=== PATIENT | female | born 1980 | race Caucasian/White ===

== ENCOUNTER → 2018-06-30 09:06 | Outpatient (CLI) | payer OTHER, SELFPAY ==
[2018-06-30 09:25] LABS: Basophils % 0.7 % (0.1-2.0); Eosinophils # 0.1 K/mm3 (0.0-0.4); Eosinophils % 1.2 % (0.1-12.0); Hematocrit 44.3 % (37.0-47.0); Hemoglobin 14.8 g/dL (12.2-16.2); Lymphocytes # 1.9 K/mm3 (0.7-4.5); Lymphocytes % 29.7 % (10-50); Mean Corpuscular HGB Conc 33.5 g/dL (31.8-35.4); Mean Corpuscular Hemoglobin 29.9 pg (27.0-31.2); Mean Corpuscular Volume 89.3 fl (81-99); Monocytes # 0.3 K/mm3 (0.1-1.0); Monocytes % 4.6 % (1.7-9.3); Neutrophils % 63.9 % (37.0-80.0); Platelet Count 337 K/mm3 (142-424); Red Blood Count 4.96 M/mm3 (4.20-5.40); Red Cell Distribution Width 12.5 % (11.5-17.5); White Blood Count 6.3 K/mm3 (4.8-10.8)
[2018-06-30 09:40] LABS: Glucose,Fasting 87 mg/dL (60-105)
[2018-06-30 11:51] LABS: Glucose 1 Hour 188 mg/dL (74-106)
[2018-06-30 11:52] LABS: Alanine Aminotransferase 23 U/L (12-78); Albumin Level 4.1 gm/dL (3.4-5.0); Alkaline Phosphatase 44 U/L (46-116); Anion Gap 15.6 mEq/L (5-15); Aspartate Amino Transferase 9 U/L (15-37); Bilirubin,Total 0.3 mg/dL (0.2-1.0); Blood Urea Nitrogen 14 mg/dL (7-18); Calcium 8.9 mg/dL (8.5-10.1); Carbon Dioxide 25 mmol/L (21.0-32.0); Chloride 102 mmol/L (98-107); Chol/HDL Ratio 2.7 (1-3.5); Cholesterol 194 mg/dL (140-200); Creatinine,Serum 0.93 mg/dL (0.55-1.02); Estimated Glomerular Filt Rate 67 ml/min (>60); GFR (African American) 81 ML/MIN (>60); Glucose 84 mg/dL (74-106); HDL Cholesterol 71 mg/dL (29-89); LDL Cholesterol 111 mg/dL (0-130); Potassium 3.6 mmoL/L (3.5-5.1); Sodium 139 mmol/L (136-145); Thyroid Stimulating Hormone 4.78 uIU/ml (0.358-3.740); Total Protein,Serum 8.1 gm/dL (6.4-8.2); Triglycerides 62 mg/dL (30-200); VLDL Cholesterol 12 mg/dL (0-40)
[2018-06-30 13:20] LABS: Glucose 2 Hour 145 mg/dL (74-106)
[2018-06-30 13:37] LABS: Glucose 3 Hour 113 mg/dL (74-106)
[2018-07-04 09:54] LABS: Vitamin B12 413 pg/mL (232-1245); Vitamin D 25 Hydroxy 34.3 ng/mL (30.0-100.0)
== END ==
PROVIDERS: Visit Provider Physician Assistant
DX: R42 Dizziness and giddiness (principal); R25.1 Tremor, unspecified; R53.1 Weakness; Z13.220 Encounter for screening for lipoid disorders
CPT/HCPCS: 36415; 80053; 80061; 82607; 82652; 82951; 84443; 85025

== ENCOUNTER → 2018-07-14 14:16 | Outpatient (CLI) | payer OTHER, SELFPAY ==
[2018-07-14 16:22] LABS: Free T4 (Free Thyroxine) 0.92 ng/dl (0.76-1.46)
[2018-07-14 18:23] LABS: Hemoglobin A1C 5.3 % (0.0-7.0)
== END ==
PROVIDERS: Visit Provider Physician Assistant
DX: R73.09 Other abnormal glucose (principal); R79.89 Other specified abnormal findings of blood chemistry
CPT/HCPCS: 36415; 83036; 84439